=== PATIENT | female | born 2000 | race African-American/Black ===

== ENCOUNTER 2022-04-02 03:55 | Emergency (ER) | payer MEDICAID ==
[~2022-04-02] VITALS: Ht 154.9 cm; Wt 61.0 kg
[2022-04-02 05:22] LABS: BASOPHILS % 0.6 % (0.0-2.0); EOSINOPHILS % 0.7 % (0.0-5.0); HEMATOCRIT. 41.2 % (36.0-48.0); HEMOGLOBIN. 13.7 g/dL (12.0-16.0); LYMPHOCYTES % 39.6 % (20.0-50.0); MEAN CORPUSCULAR HEMOGLOBIN 29.3 pg (28.0-32.0); MEAN CORPUSCULAR VOLUME 88.4 fL (81.0-99.0); MEAN PLATELET VOLUME 7.9 fl (7.4-10.4); MONOCYTES % 5.9 % (2.0-8.0); NEUTROPHILS % 53.2 % (40.0-76.0); PLATELET 220 x1000/uL (130-400); RED BLOOD CELL COUNT 4.67 mill/uL (4.2-5.4); RED CELL DISTRIBUTION WIDTH 12.4 % (11.6-14.6)
[2022-04-02 05:26] LABS: CHLORIDE 107 mEq/L (98-107)
[2022-04-02 05:33] LABS: ETHANOL BLOOD < 10 mg/dL
[2022-04-02 08:11] LABS: CLARITY URINE CLEAR (CLEAR); COLOR URINE YELLOW (YELLOW); KETONES URINE 2+ (NEGATIVE); LEUKOCYTE ESTERASE URINE 2+ (NEGATIVE); NITRITE URINE NEGATIVE (NEGATIVE); OCCULT BLOOD URINE NEGATIVE (NEGATIVE); PH URINE 5.5 (4.5-8.0); PROTEIN URINE NEGATIVE (NEGATIVE); SPECIFIC GRAVITY URINE 1.016 (1.005-1.030); UROBILINOGEN URINE 0.2 E.U./dL (0.2-1.0)
[2022-04-02 08:37] LABS: *AMPHETAMINES SCREEN URINE NEGATIVE (NEGATIVE); *BARBITURATES SCREEN URINE NEGATIVE (NEGATIVE); *BENZODIAZEPINES SCREEN URINE NEGATIVE (NEGATIVE); *COCAINE SCREEN URINE NEGATIVE (NEGATIVE); METHADONE URINE SCREEN NEGATIVE (NEGATIVE); OPIATES URINE SCREEN NEGATIVE (NEGATIVE); PHENCYCLIDINE URINE SCREEN NEGATIVE (NEGATIVE)
[2022-04-02 08:47] LABS: CANNABINOID URINE SCREEN PRESUMTIVE POSITIVE (NEGATIVE)
[2022-04-02 13:10] VITALS: BP 122/60
== END 2022-04-02 13:29 | disposition home or self-care (01) ==
LOC: ER 03:55
DX: R45.851 Suicidal ideations (principal); F12.90 Cannabis use, unspecified, uncomplicated
CPT/HCPCS: 36415; 80053; 80305; 80307; 80320; 80329; 81003; 85025; 99283; G0480

== ENCOUNTER 2022-06-29 04:18 | Emergency (ER) | payer MEDICAID ==
[~2022-06-29] VITALS: Ht 162.6 cm; Wt 48.0 kg
[2022-06-29 05:09] LABS: BASOPHILS % 0.7 % (0.0-2.0); EOSINOPHILS % 1.6 % (0.0-5.0); HEMATOCRIT. 37.3 % (36.0-48.0); HEMOGLOBIN. 12.4 g/dL (12.0-16.0); LYMPHOCYTES % 40.6 % (20.0-50.0); MEAN CORPUSCULAR HEMOGLOBIN 29.8 pg (28.0-32.0); MEAN CORPUSCULAR VOLUME 89.5 fL (81.0-99.0); MEAN PLATELET VOLUME 7.2 fl (7.4-10.4); MONOCYTES % 7.6 % (2.0-8.0); NEUTROPHILS % 49.5 % (40.0-76.0); PLATELET 182 x1000/uL (130-400); RED BLOOD CELL COUNT 4.17 mill/uL (4.2-5.4); RED CELL DISTRIBUTION WIDTH 12.9 % (11.6-14.6)
[2022-06-29 05:17] LABS: CHLORIDE 111 mEq/L (98-107)
[2022-06-29 05:18] LABS: HCG SCREEN NEGATIVE
[2022-06-29 07:00] VITALS: BP 118/58
[2022-06-29 07:14] LABS: CLARITY URINE CLEAR (CLEAR); COLOR URINE YELLOW (YELLOW); KETONES URINE NEGATIVE (NEGATIVE); LEUKOCYTE ESTERASE URINE TRACE (NEGATIVE); NITRITE URINE NEGATIVE (NEGATIVE); OCCULT BLOOD URINE TRACE (NEGATIVE); PH URINE 5.5 (4.5-8.0); PROTEIN URINE NEGATIVE (NEGATIVE); SPECIFIC GRAVITY URINE 1.012 (1.005-1.030); UROBILINOGEN URINE 0.2 E.U./dL (0.2-1.0)
[2022-06-29] MEDS ORDERED: IBUP-2029 MT (07:59)
== END 2022-06-29 09:10 | disposition home or self-care (01) ==
LOC: ER 04:18
DX: R10.11 Right upper quadrant pain (principal)
CPT/HCPCS: 36415; 76705; 80053; 81003; 81025; 84703; 85025; 99284

== ENCOUNTER 2023-09-23 09:15 | Emergency (ER) | payer MEDICAID ==
[~2023-09-23] VITALS: Ht 162.6 cm; Wt 60.0 kg
[~2023-09-23 09:15] MED LIST: IBUP-2029 MT
[2023-09-23 09:16] VITALS: TEMP 98.8; O2SAT 99
[2023-09-23] MEDS ORDERED: IBUP-2029 MT (11:10)
[2023-09-23] MEDS ORDERED: HYDROCODONE/ACETAMINOPHEN 5/325MG TABLET PO ONE (11:15)
[2023-09-23 11:22] VITALS: BP 124/81; PULSE 86; RESP 16
== END 2023-09-23 11:24 | disposition home or self-care (01) ==
LOC: ER 09:15
DX: S50.311A Abrasion of right elbow, initial encounter (principal); S20.311A Abrasion of right front wall of thorax, initial encounter; R07.81 Pleurodynia; F12.10 Cannabis abuse, uncomplicated; V03.99XA Pedestrian with other conveyance injured in collision with car, pick-up truck or van, unspecified whether traffic or nontraffic accident, initial encounter; Y93.89 Activity, other specified; Y92.89 Other specified places as the place of occurrence of the external cause; Y99.8 Other external cause status
CPT/HCPCS: 71101; 73080; 73610; 81025; 99284

== ENCOUNTER 2023-09-30 16:29 | Emergency (ER) | payer MEDICAID ==
[~2023-09-30] VITALS: Ht 154.9 cm; Wt 58.0 kg
[2023-09-30 16:39] VITALS: O2SAT 100
[2023-09-30 18:11] VITALS: BP 104/77
[2023-09-30] MEDS ORDERED: IBUPROFEN 600MG TABLET PO ONE (18:15)
[2023-09-30 18:16] VITALS: PULSE 84; RESP 16; TEMP 98
== END 2023-09-30 18:19 | disposition home or self-care (01) ==
LOC: ER 16:29
DX: R07.89 Other chest pain (principal); M54.9 Dorsalgia, unspecified; V99.XXXA Unspecified transport accident, initial encounter; Y93.89 Activity, other specified; Y92.89 Other specified places as the place of occurrence of the external cause; Y99.8 Other external cause status
CPT/HCPCS: 71045; 81025; 93005; 99283

== ENCOUNTER 2024-01-05 16:44 | Emergency (ER) | payer MEDICAID ==
[~2024-01-05] VITALS: Ht 160 cm; Wt 58.0 kg
[2024-01-05 16:55] VITALS: BP 110/81; PULSE 98; RESP 20; TEMP 98.4; O2SAT 100
[2024-01-05] MEDS ORDERED: IBUPROFEN 400MG TABLET PO ONE (18:45)
[2024-01-05] MEDS ORDERED: IBUPROFEN 400MG TABLET PO NR (23:30)
== END 2024-01-05 23:07 | disposition left against medical advice (07) ==
LOC: ER 17:32
DX: B34.9 Viral infection, unspecified (principal)
CPT/HCPCS: 71045; 99283

== ENCOUNTER 2024-12-09 14:59 | Emergency (ER) | payer MEDICAID ==
[~2024-12-09] VITALS: Ht 154.9 cm; Wt 55.0 kg
[2024-12-09 15:02] VITALS: O2SAT 98
[2024-12-09 16:05] LABS: CLARITY URINE CLEAR (CLEAR); COLOR URINE YELLOW (YELLOW); GLUCOSE URINE NEGATIVE (NEGATIVE); KETONES URINE TRACE (NEGATIVE); LEUKOCYTE ESTERASE URINE NEGATIVE (NEGATIVE); NITRITE URINE NEGATIVE (NEGATIVE); OCCULT BLOOD URINE NEGATIVE (NEGATIVE); PROTEIN URINE NEGATIVE (NEGATIVE); UROBILINOGEN URINE 0.2 E.U./dL (0.2-1.0)
[2024-12-09 16:13] LABS: *AMPHETAMINES SCREEN URINE NEGATIVE (NEGATIVE); *BARBITURATES SCREEN URINE NEGATIVE (NEGATIVE); *BENZODIAZEPINES SCREEN URINE NEGATIVE (NEGATIVE); *COCAINE SCREEN URINE NEGATIVE (NEGATIVE); METHADONE URINE SCREEN NEGATIVE (NEGATIVE)
[2024-12-09 16:14] LABS: CANNABINOID URINE SCREEN PRESUMPTIVE POSITIVE (NEGATIVE); ECSTASY MDMA SCREEN URINE NEGATIVE (NEGATIVE); OPIATES URINE SCREEN NEGATIVE (NEGATIVE); PHENCYCLIDINE URINE SCREEN NEGATIVE (NEGATIVE)
[2024-12-09 17:06] LABS: BASOPHILS % 0.7 % (0.0-2.0); EOSINOPHILS % 0.8 % (0.0-5.0); HEMATOCRIT. 44.5 % (36.0-48.0); LYMPHOCYTES % 42.6 % (20.0-50.0); MEAN CORPUSCULAR HEMOGLOBIN 30.3 pg (28.0-32.0); MEAN CORPUSCULAR HGB CONC 33.7 g/dL (31.0-37.0); MEAN CORPUSCULAR VOLUME 89.9 fL (81.0-99.0); MEAN PLATELET VOLUME 7.3 fl (7.4-10.4); MONOCYTES % 5.3 % (2.0-8.0); NEUTROPHILS % 50.6 % (40.0-76.0); PLATELET 258 x1000/uL (130-400); RED BLOOD CELL COUNT 4.95 mill/uL (4.2-5.4); RED CELL DISTRIBUTION WIDTH 12.3 % (11.6-14.6); WHITE BLOOD COUNT 6.7 x1000/uL (4.5-11.0)
[2024-12-09 17:14] LABS: CHLORIDE 108 mEq/L (98-107); POTASSIUM 3.6 mEq/L (3.5-5.1); SODIUM 143 mEq/L (136-145)
[2024-12-09 17:15] LABS: CARBON DIOXIDE 24 mEq/L (21-32)
[2024-12-09 17:16] LABS: CALCIUM 9.7 mg/dL (8.7-10.4)
[2024-12-09 17:19] LABS: HCG SCREEN NEGATIVE
[2024-12-09 17:20] LABS: CREATININE 0.9 mg/dL (0.6-1.0)
[2024-12-09 17:21] LABS: GLUCOSE 83 mg/dL (70-105); UREA NITROGEN BLOOD 6 mg/dL (9-23)
[2024-12-09 17:22] LABS: ACETAMINOPHEN < 2 ug/mL (10-30); ETHANOL BLOOD < 10 mg/dL (<10)
[2024-12-09] MEDS ORDERED: LORAZEPAM 1MG TABLET PO ONE (17:45)
[2024-12-09] MEDS: LORAZEPAM 1MG TABLET PO NR (18:24)
[2024-12-09] MEDS: HALOPERIDOL LACTATE 5MG/ML VIAL IM ONE (21:00)
[2024-12-09] MEDS: LORAZEPAM 2MG/ML INJ IM ONE (21:00)
[2024-12-09] MEDS: DIPHENHYDRAMINE 50MG/ML VIAL IM PRN (21:04)
[2024-12-10 17:54] VITALS: BP 119/75; PULSE 90; RESP 18; TEMP 36.8; O2SAT 97
== END 2024-12-10 17:33 ==
LOC: ER 14:59
DX: R45.851 Suicidal ideations (principal); F31.9 Bipolar disorder, unspecified; F12.10 Cannabis abuse, uncomplicated; I49.9 Cardiac arrhythmia, unspecified; F60.3 Borderline personality disorder; Z20.822 Contact with and (suspected) exposure to COVID-19
CPT/HCPCS: 80305; 80048; 81003; 80307; 80329; 80320; 84703; 85025; 36415; 93005; 96372; 99285; 87426; J1200; J1630; J2060; G0480